=== PATIENT | female | born 1975 | race African-American/Black ===

== ENCOUNTER 2016-06-07 21:13 | Emergency (ER) | payer BC ==
[~2016-06-07] VITALS: Ht 167.6 cm; Wt 152.5 kg
[~2016-06-07 21:13] MED LIST: ATOR20TA59 PO; FAMO40TA7 PO; FLUT200B PO; LOSA50TA52 PO; PROM25TA7 PO
--- OUTSIDE RECORDS SUMMARY | 2016-06-07 21:17 | XMS REPORT | Continuity of Care Document ---
Author Author [facility] Organization [facility] Address Unknown Phone Unavailable Care Team Providers Care Automation Control Integrator Name Role Phone BEARYODIT JACKSON APRN Primary Care Physician Unavailable Insurance Providers Guarantor Zamzam Garcia Address [address] [address] Email DENIED 16 [facility] Policy Number [id number] Subscriber's Name Amada Garcia Relationship 01 Spouse Group Number [id number] Chief Complaint and Reason for Visit Chief Complaint Cough,Fever,Flu,URI Reason for Visit Vomiting and diarrhea Gastroenteritis Pharyngitis Problems Active Problems Medical Problem Onset Date Status Abdominal pain in female patient Unknown Acute Morbid obesity Unknown Past Problems Medical Problem Onset Date Gastritis Unknown Gastroenteritis Unknown Pharyngitis Unknown Sinusitis, acute maxillary Unknown Spastic intestine Unknown Strep throat Unknown Vomiting and diarrhea Unknown Medications Current Home Medications Medication Dose Units Route Directions Days Qty Instructions Start Date Atorvastatin Calcium 20 Mg Tablet 1 Tab Oral Bedtime 04/13/16 Famotidine 40 Mg Tablet 1 Tab Oral Daily 90 Tablet 04/13/16 Fluticasone Furoate (Arnuity Ellipta) 200 Mcg Blst.w.dev 1 Puff Oral Daily 04/13/16 Losartan Potassium 50 Mg Tablet 50 Mg Oral Daily 04/13/16 Promethazine Hcl 25 Mg Tablet 1 Tab Oral Every 6 Hr Prn for Nausea &/Or Vomiting 2 Days [address] Cheo [facility] [address] [place] [address] 06/06/16 Past Home Medications Medication Directions Ordered Status Ferrous Sulfate (Slow Fe) 160 Mg Tablet.sa, 160 Mg Oral Daily 11/18/10 Discontinued Ondansetron (Zofran Odt) 8 Mg Tab.rapdis, 8 Mg Oral/Sublingual Every 4 Hours Prn for Nausea &/Or Vomiting 06/06/16 Discontinued Vits W-Ca,Fe,Fa(<1MG) () 1 Tab Tablet, 1 Tab Oral Daily 18/01 Discontinued Social History Social History Problem Response Recorded Date/Time Onset Date Status Chewing Tobacco Status No 01/26/2012 6:06am Not Applicable Not Applicable Hx Substance Use No 04/13/2016 12:34am Not Applicable Not Applicable Hx Alcohol Use No 04/13/2016 12:34am Not Applicable Not Applicable Has the pt used tobacco in the last 12 months No 01/26/2012 6:06am Not Applicable Not Applicable Tobacco Usage none 05/12/2015 5:20pm Not Applicable Not Applicable Hospital Discharge Instructions No hospital discharge instructions. Plan of Care Discharge Date 06/06/16 10:56am Disposition 01 DISCHARGED HOME, SELF-CARE Condition at Discharge Stable Instructions/Education Provided Pharyngitis (ED) Fever in Adults (ED) Gastroenteritis (DC) Acute Nausea and Vomiting (DC) Forms Provided [facility] Work/School Permit Prescriptions See Medication Section Referrals YODIT SIFUENTES APRN Address: [address] [place] [id number] Additional Instructions/Education Use Phenergan as needed for nausea. Clear liquids with small sips frequently. Use Tylenol as needed for fevers and body aches. Rest at home until symptoms improve. If unable to keep fluids down in the next 12-24 hours, go to the emergency department as needed. Functional Status No functional status results. Allergies, Adverse Reactions, Alerts Allergen Type Severity Reaction Status Last Updated No Known Drug Allergies Allergy Unknown Active 06/06/16 Immunizations Query Response on File Recorded Date/Time Hx Influenza Vaccination No 11/27/10 2:16pm Hx Pneumococcal Vaccination No 11/27/10 2:16pm Hx Influenza Vaccination No 11/27/10 2:16pm DTaP Vaccine History UNKNOWN 06/06/16 10:09am Influenza Vaccine Hx DOESN'T RECEIVE 06/06/16 10:09am Vital Signs Acute Vital Signs Vital Response Date/Time Temperature (Fahrenheit) 101.7 deg F (96.8 - 99.1) 06/06/2016 9:58am Temperature (Calculated Celsius) 38.49255 degrees C (36.0 - 37.3) 06/06/2016 9:58am Pulse Rate (adult) 117 bpm (60 - 100) 06/06/2016 9:58am Respiratory Rate 24 breaths/min (10 - 20) 06/06/2016 9:58am O2 Sat by Pulse Oximetry 97 % (90 - 100) 06/06/2016 9:58am Blood Pressure 138/93 mm Hg 06/06/2016 9:58am Height (Feet) 5 feet 04/13/2016 12:24am Height (Inches) 65.50 inches 06/06/2016 9:58am Weight (Kilograms) 155.700 kg 06/06/2016 9:58am Body Mass Index (BMI) 56.0 06/06/2016 9:58am Results Laboratory Results Test Name Result Units Flags Reference Collection Date/Time Result Date/ Time Comments White Blood Count 10.6 T/MM3 4.5-11.0 04/13/2016 12:49am 04/13/2016 12: 54am Red Blood Count 5.24 M/MM3 H 4.00-5.20 04/13/2016 12:49am 04/13/2016 12: 54am Hemoglobin 12.9 GM/DL 12-16 04/13/2016 12:49am 04/13/2016 12:54am Hematocrit 40.3 % 36-46 04/13/2016 12:49am 04/13/2016 12:54am Mean Corpuscular Volume 76.9 UM3 L 80-100 04/13/2016 12:49am 04/13/2016 12:54am Mean Corpuscular Hemoglobin 24.6 UUG L 26-34 04/13/2016 12:49am 2016 12:54am Mean Corpuscular Hemoglobin Concent 32.0 GM/DL 31-37 04/13/2016 12:49am 04/13/2016 12:54am RDW Standard Deviation 40.7 FL 36.9-50.2 04/13/2016 12:49am 04/13/2016 12:54am Platelet Count 331 T/MM3 130-400 04/13/2016 12:49am 04/13/2016 12:54am Mean Platelet Volume 9.3 UM3 L 9.4-12.4 04/13/2016 12:49am 04/13/2016 12 :54am Neutrophils (%) (Auto) 77.5 % H 33-66 04/13/2016 12:49am 04/13/2016 12: 54am Lymphocytes (%) (Auto) 16.7 % L 23-45 04/13/2016 12:49am 04/13/2016 12: 54am Monocytes (%) (Auto) 5.0 % 0-9.0 04/13/2016 12:49am 04/13/2016 12:54am Eosinophils (%) (Auto) 0.1 % 0-4 04/13/2016 12:49am 04/13/2016 12:54am Basophils (%) (Auto) 0.3 % 0-2 04/13/2016 12:49am 04/13/2016 12:54am Immature Granulocyte % (Auto) 0.4 % 0.0-0.5 04/13/2016 12:49am 2016 12:54am Absolute Neutrophils (auto) 8.2 T/MM3 H 1.8-7.7 04/13/2016 12:49am 04/13 12:54am Absolute Lymphocytes (auto) 1.8 T/MM3 1-4.8 04/13/2016 12:49am 2016 12:54am Absolute Monocytes (auto) 0.5 T/MM3 0-0.8 04/13/2016 12:49am 2016 12:54am Absolute Eosinophils (auto) 0.0 T/MM3 0-0.5 04/13/2016 12:49am 2016 12:54am Absolute Basophils (auto) 0.0 T/MM3 0-0.2 04/13/2016 12:49am 2016 12:54am Absolute Immature Granulocyte (auto 0.04 T/MM3 H 0.00-0.03 04/13/2016 12: 49am 04/13/2016 12:54am Icterus Index < 2 0-7 04/13/2016 12:49am 04/13/2016 1:04am Chemistry Specimen Hemolysis < 15 0-25 04/13/2016 12:49am 04/13/2016 1:04am 0-25: Specimen Exhibited No Hemolysis. Turbidity < 20 0-20 04/13/2016 12:49am 04/13/2016 1:04am Sodium Level 141 MEQ/L 134-144 04/13/2016 12:49am 04/13/2016 1:04am Potassium Level 3.9 MEQ/L 3.6-5 04/13/2016 12:49am 04/13/2016 1:04am Chloride Level 104 MEQ/L 98-107 04/13/2016 12:49am 04/13/2016 1:04am Carbon Dioxide Level 24 MEQ/L 22-30 04/13/2016 12:49am 04/13/2016 1: 04am Anion Gap 13 MEQ/L 5-15 04/13/2016 12:49am 04/13/2016 1:04am Blood Urea Nitrogen 11.0 MG/DL 7-04/13/2016 12:49am 04/13/2016 1: 04am Creatinine 0.8 MG/DL 0.7-1.2 04/13/2016 12:49am 04/13/2016 1:04am BUN/Creatinine Ratio 14 RATIO 6-26 04/13/2016 12:49am 04/13/2016 1: 04am Glomerular Filtration Rate Calc 79 04/13/2016 12:49am 04/13/2016 1: 04am Glucose Level 177 MG/DL H 65-110 04/13/2016 12:49am 04/13/2016 1:04am Calculated Osmolality 274 MOSM/KG 261-280 04/13/2016 12:49am 2016 1:04am Calcium Level 9.1 MG/DL 8.4-10.2 04/13/2016 12:49am 04/13/2016 1:04am Total Bilirubin 0.60 MG/DL 0.20-1.30 04/13/2016 12:49am 04/13/2016 1: 04am Alkaline Phosphatase 70 U/L 38-126 04/13/2016 12:49am 04/13/2016 1: 04am Total Protein 7.4 G/DL 6.3-8.2 04/13/2016 12:49am 04/13/2016 1:04am Albumin 4.2 G/DL 3.5-5.0 04/13/2016 12:49am 04/13/2016 1:04am Globulin 3.2 G/DL 2.4-3.6 04/13/2016 12:49am 04/13/2016 1:04am Albumin/Globulin Ratio 1.3 RATIO 1.1-2.2 04/13/2016 12:49am 04/13/2016 1:04am Aspartate Amino Transf (AST/SGOT) 29 U/L 14-36 04/13/2016 12:49am 04/13 1:04am Alanine Aminotransferase (ALT/SGPT) 40 U/L 9-52 04/13/2016 12:49am 1:04am Troponin I < 0.012 ng/ml 0-0.12 04/13/2016 12:49am 04/13/2016 1:16am Troponin values with a difference of 55% increase from orginal troponin value represent a true biological DELTA value. (%increase Calc=Orginal Troponin value, divided by subsequent Troponin value, multiplied by 100) Lipase 92 U/L 23-300 04/13/2016 12:49am 04/13/2016 1:04am Influenza Type A Antigen NEGATIVE NEGATIVE 06/06/2016 10:16am 2016 10:39am Negative for Flu A protein antigen. Assay sensitivity is 90%. Influenza Type B Antigen NEGATIVE NEGATIVE 06/06/2016 10:16am 2016 10:39am Negative for Flu B protein antigen. Assay sensitivity is 90%. Group A Streptococcus Screen NEGATIVE NEGATIVE 06/06/2016 10:38am 10:39am Procedures Procedure Status Date Provider(s) Chest x-ray 2vw frontal&latl Completed 04/13/16 Comprehen metabolic panel Completed 04/13/16 Assay of lipase Completed 04/13/16 Assay of troponin quant Completed 04/13/16 Complete cbc w/auto diff wbc Completed 04/13/16 Electrocardiogram tracing Completed 04/13/16 Hydrate iv infusion add-on Completed 04/13/16 Ther/proph/diag inj iv push Completed 04/13/16 Tx/pro/dx inj new drug addon Completed 04/13/16 Tx/pro/dx inj new drug addon Completed 04/13/16 Emergency dept visit Completed 04/13/16 [id number]"INJECTION, PROCHLORPERAZINE, UP TO 10 MG" Completed 02/20/17 [id number]"INJECTION, KETOROLAC TROMETHAMINE, PER 15 MG" Completed 04/13/16"INJECTION, FENTANYL CITRATE, 0.1 MG" Completed 04/13/16"INFUSION, NORMAL SALINE SOLUTION , 1000 CC" Completed 04/13/16 Encounters Encounter Location Arrival/Admit Date Discharge/Depart Date Attending Provider Departed Emergency Room [facility] 06/06/16 9:54am 06/06/16 10: 56am TAHIR SMITH APRN Departed Emergency Room [facility] 04/13/16 12:22am 04/13/16 2: 08am AJAY LAM MD Recent Diagnosis
[2016-06-07 21:18] VITALS: Ht 167.6 cm; Wt 152.5 kg
[2016-06-07] MEDS ORDERED: IBUPROFEN 800 MG TABLET PO ONE (21:45)
[2016-06-07 21:47] LABS: BASOPHILS % (AUTO) 0.2 % (0-2); EOSINOPHILS % (AUTO) 0.3 % (0-4); HCT - HEMATOCRIT 41.3 % (36-46); HGB - HEMOGLOBIN 13.1 GM/DL (12-16); IMMATURE GRANULOCYTE # (AUTO) 0.03 T/MM3 (0.00-0.03); IMMATURE GRANULOCYTE % (AUTO) 0.2 % (0.0-0.5); LYMPHOCYTES # (AUTO) 2.3 T/MM3 (1-4.8); LYMPHOCYTES % (AUTO) 18.8 % (23-45); MEAN CORPUSCULAR HGB 24.5 UUG (26-34); MEAN CORPUSCULAR HGB CONC(MCHC 31.7 GM/DL (31-37); MEAN CORPUSCULAR VOLUME 77.2 UM3 (80-100); MEAN PLATELET VOLUME 9.2 UM3 (9.4-12.4); MONOCYTES # (AUTO) 0.8 T/MM3 (0-0.8); MONOCYTES % (AUTO) 6.8 % (0-9.0); NEUTROPHILS #(AUTO)-ABSOLUTE 8.9 T/MM3 (1.8-7.7); NEUTROPHILS % (AUTO) 73.7 % (33-66); RED BLOOD COUNT 5.35 M/MM3 (4.00-5.20); WBC - WHITE BLOOD COUNT 12.1 T/MM3 (4.5-11.0)
--- NOTE | 2016-06-07 21:48 | NUR ---
XRAY PATIENT TO RADIOLOGY PER CART, STABLE. PATIENT ABLE TO STAND FOR CXR WITHOUT DIFFICULTY.
[2016-06-07 21:54] LABS: ANION GAP 13 MEQ/L (5-15); BUN/CREATININE RATIO 12 RATIO (6-26); CALCIUM 9.2 MG/DL (8.4-10.2); CHLORIDE 102 MEQ/L (98-107); CO2 - CARBON DIOXIDE 26 MEQ/L (22-30); CREATININE 0.9 MG/DL (0.7-1.2); GLOMERULAR FILTRATION RATE 69; GLUCOSE 167 MG/DL (65-110); POTASSIUM 3.7 MEQ/L (3.6-5); SODIUM 141 MEQ/L (134-144)
--- NOTE | 2016-06-07 21:54 | NUR ---
RETURN PATIENT BACK FROM RADIOLOGY PER CART, STABLE.
--- NOTE | 2016-06-07 21:55 | NUR ---
UPDATE PATIENT LYING IN BED, REPORTS NO SIGNIFICANT CHANGES AT THIS TIME.
[2016-06-07] MEDS ORDERED: ONDANSETRON ODT 4 MG TAB PO ONE (22:00)
--- NOTE | 2016-06-07 23:00 | NUR ---
UPDATE PATIENT LYING IN BED, FAMILY AT BEDSIDE. PATIENT CONTINUES TO REPORT BODY ACHES AND HEADACHE, BUT REPORTS NAUSEA HAS IMPROVED AT THIS TIME.
[2016-06-07 23:12] LABS: BLOOD, URINE NEGATIVE (NEGATIVE); COLOR,URINE YELLOW (YELLOW); LEUKOCYTE ESTERASE ,URINE NEGATIVE (NEGATIVE); NITRITE,URINE NEGATIVE (NEGATIVE)
--- NOTE | 2016-06-07 23:31 | ERPDOC ---
Departure Disposition Decision Date: Jun 07, 2016 Disposition Decision Time: 23:31 () Disposition: 01 DISCHARGED HOME, SELF-CARE Impression Impression () Impression: Primary Impression: URI (upper respiratory infection) URI type: unspecified viral URI Qualified Codes: B97.89 - Other viral agents as the cause of diseases classified elsewhere; J06.9 - Acute upper respiratory infection, unspecified Severity: Mild () Condition: Stable Seen By: Physician only () Referrals: YODIT SIFUENTES APRN (Family) 3 Days Patient Instructions: Upper Respiratory Infection (ED) Problems/Meds/Labs Reviewed?: Yes Medications reviewed and manag: Yes () Additional Instructions: You have a cold. Take tylenol and motrin as needed for pain and fever. Drink plenty of fluids. Follow up with your doctor in the next week. Follow up care ordered?: Yes Mental Status: Alert, Oriented () HPI - Fever General Chief Complaint: Fever Stated Complaint: HIGH FEVER Time Seen by Provider: 21:20 () Time Seen by Provider: 21:20 Source: patient Exam Limitations: no limitations (BHUPENDRA MORENO APRN) HPI - Fever Initial Comments She presents to ER today for evaluation of fever. She states that onset of fever was yesterday. Did go to immediate care and had a rapid strep test and an influenza swab both that were negative. She was sent home with instructions for viral infection. Fever has continued today and she is having body aches and has vomited a few times as well. Denies any diarrhea or abdominal pain. Occurred At: home Onset: Gradual Duration: other (Over the last 2 days) Fever Quality: greater than 102 F Associated Symptoms: dizziness, headache, lightheadedness, nausea/vomiting, trouble walking (due to weakness), DENIES: abdominal pain, chest pain, confusion , muscle spasms, neck pain, ringing in ears, seizures, shortness of breath, slurred speech, vision changes Hx of Similar Symptoms: No (BHUPENDRA MORENO APRN) Allergies: Coded Allergies: No Known Drug Allergies (Verified Allergy, Unknown, 06/07/16) Past History Past Medical History Metabolic: hypertension GI: GERD () Pt denies signifigant PMH (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,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) Surgical History General: tonsils Reproductive/: hysterectomy () Reproductive/: hysterectomy, tubal ligation (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,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) Family History Family PMH: FOUND: diabetes () Family History: Negative (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,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) Vaccines Hx Influenza Vaccination: No Hx Pneumococcal Vaccination: No () Social History # of Packs/Tins per Day: 1.0 Quit Date: Feb 23, 1996 Substance Use Type: does not use Alcohol Intake: none () Smoking Status: Never smoker Substance Use Type: does not use Alcohol Intake: none (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,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) Review of Systems Constitutional Constitutional: chills, dizziness, fatigue, fever, weakness (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,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 ) ENMT Ears: DENIES: drainage Sinuses: DENIES: congestion, rhinorrhea Mouth/Throat: sore throat, DENIES: painful swallowing, scratchy throat (NOLD, 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) Cardiovascular Cardiac: DENIES: chest pain, dyspnea on exertion, orthopnea Rhythm/Rate: DENIES: irregular beat, palpitations (NOLD,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) Pulmonary Respiratory: DENIES: cough, dyspnea, sputum, tachypnea (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,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) GI Upper Abdomen: nausea, vomiting, DENIES: pain Lower Abdomen: DENIES: constipation, diarrhea, pain (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,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) Integumentary Skin: DENIES: rash (NOLD,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) Neurological General: DENIES: headache, numbness, tingling, weakness (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,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) Physical Exam General General Nourishment: well nourished, well developed, appears stated age, adult , obese, acute distress (Is moaning on the cart but does not have toxic appearance) General Body Habitus: well groomed (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,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) Vitals and Pain Weight: Kilograms: 152.500 Height (feet): 5 Height (inches): 6.00 Triage Pain Scale: (MAY,PHILLY M DO) RN VS reviewed by Provider: Yes (BHUPENDRA MORENO APRN) Normal Exams: Neck: Full range of motion, without adenopathy, JVD, bruits or thyromegaly Chest/Resp: Clear all feliciano, with good airflow, and symmetry bilaterally CV: Regular rate and rhythm, without murmur or gallop, Pulses 2+ all extremities, capillary refill, <2 seconds all ext., no pedal edema noted Abdomen: Bowel sounds positive, soft, non-tender, non-distended, no hepatosplenomegaly, masses or bruits noted Lymphatic: No lymphadenopathy, or lymphedema noted Integumentary: No rashes, hives, or bruising noted Neurologic: Patient is alert, and oriented Psychiatric: Patient exhibits, appropriate attention, emotion and affect (BHUPENDRA MORENO APRN) ENMT (brief) ENMT Brief: FOUND: TM clear, TM good light reflex, ear canals clear, mucosa moist, normal dentition, normal tonsils, NOT FOUND: lesions, nasal erythema, nasal exudate, nasal swelling, petechiae, pharnyx erythema, tonsillar deviation (BHUPENDRA MORENO APRN) Differential Diagnoses Considering: Influenza, Otitis Media, Pharyngitis, Pneumonia, Septic Shock, URI , Viral Syndrome (BHUPENDRA MORENO APRN) Progress Results/Orders Orders Procedure Category Date Status Time Ua, Dip Wreflex LAB 06/07/16 Complete Microsc & Rn Corrections 21:30 Cbc W/Auto LAB 06/07/16 Complete Diff-Reflex Manual Bmp - Basic Metabolic LAB 06/07/16 Complete Panel Chest, Pa & Lateral RAD 06/07/16 Resulted Ibuprofen (Motrin) PHA 06/07/16 Complete 21:45 Ondansetron Odt PHA 06/07/16 Complete (Zofran Odt) 22:00 Influenza A/B By Pcr LAB 06/07/16 Complete 21:30 (BHUPENDRA MORENO APRN) Lab Results Laboratory Tests Test 06/07/16 21:41 06/07/16 22:00 06/07/16 23:03 White Blood Count 12.1T/MM3 Red Blood Count 5.35M/MM3 Hemoglobin 13.1GM/DL Hematocrit 41.3% Mean Corpuscular Volume 77.2UM3 Mean Corpuscular Hemoglobin 24.5UUG Mean Corpuscular Hemoglobin Concent 31.7GM/DL RDW Standard Deviation 39.6FL Platelet Count 286T/MM3 Mean Platelet Volume 9.2UM3 Immature Granulocyte % (Auto) 0.2% Neutrophils (%) (Auto) 73.7% Lymphocytes (%) (Auto) 18.8% Monocytes (%) (Auto) 6.8% Eosinophils (%) (Auto) 0.3% Basophils (%) (Auto) 0.2% Absolute Immature Granulocyte (auto 0.03T/MM3 Absolute Neutrophils (auto) 8.9T/MM3 Absolute Lymphocytes (auto) 2.3T/MM3 Absolute Monocytes (auto) 0.8T/MM3 Absolute Eosinophils (auto) 0.0T/MM3 Absolute Basophils (auto) 0.0T/MM3 Turbidity < 20 Sodium Level 141MEQ/L Potassium Level 3.7MEQ/L Chloride Level 102MEQ/L Carbon Dioxide Level 26MEQ/L Anion Gap 13MEQ/L Blood Urea Nitrogen 11.0MG/DL Creatinine 0.9MG/DL Glomerular Filtration Rate Calc 69 BUN/Creatinine Ratio 12RATIO Glucose Level 167MG/DL Calculated Osmolality 274MOSM/KG Calcium Level 9.2MG/DL Icterus Index < 2 Chemistry Specimen Hemolysis < 15 Influenza Virus Type A (PCR) Negative Influenza Virus Type B (PCR) Negative Urine Collection Type Cleancatch-midstream Urine Color Yellow Urine Turbidity Clear Urine pH 6.5 Urine Specific Amorita 1.010 Urine Protein Negative Urine Glucose (UA) Negative Urine Ketones Negative Urine Blood Negative Urine Nitrite Negative Urine Bilirubin Negative Urine Urobilinogen 2.0EU/DL Urine Leukocyte Esterase Negative Urinalysis Comment Microscopic not ind. (BHUPENDRA MORENO APRN) Medications Current ED Medications Ibuprofen (Motrin) 800 mg O ONCE PO Last administered on 06/07/16 21:43; Start 06/07/16 at 21:45; Stop 06/07/16 at 21:46; Status DC Ondansetron HCl (Zofran Odt) 4 mg O ONCE PO Last administered on 06/07/16 21: 54; Start 06/07/16 at 22:00; Stop 06/07/16 at 22:01; Status DC (BHUPENDRA MORENO APRN) Progress Progress Assumed care of pt from Tracy Moreno APRN at 2300. 41yo woman with PE evidence of viral URI. Elevated WBC without evidence of bacterial infx or sepsis. Flu swab again neg. No pulm or urinary source by lab/ rad. Pt most likely has URI, as initially dx'ed by convenient care. Discussed dx , prognosis, and tx with pt and spouse, who voiced understanding. F/u with PCM. (PHILLY LEYVA DO) Xray Xray : Xray: CXR PA/Lat Interpretation: Normal, Interpreted by Me (PHILLY LEYAV DO) PHILLY LEYVA DO Jun 07, 2016 23:31 BHUPENDRA MORENO APRN Jun 13, 2016 00:02
[2016-06-07 23:38] VITALS: BP 145/84; PULSE 98; RESP 20; TEMP 99.8; O2SAT 94
--- NOTE | 2016-06-07 23:38 | NUR ---
DEPART PATIENT SEEN LEAVING ED PRIOR TO DC INSTRUCTIONS GIVEN. PATIENT STOPPED IN HALLWAY AND INSTRUCTIONS GIVEN.
--- NOTE | 2016-06-08 06:55 | DI ---
LOCATION OF DICTATION: [facility] EXAM: CHEST, PA LATERAL HISTORY: ITS.REASON: fever COMPARISON: April 13, 2016 FINDINGS: The heart size is normal. The mediastinal configuration is unremarkable. There are no consolidating opacities or pleural effusions. There is no evidence for a pneumothorax. The osseous structures are within normal limits. IMPRESSION: No acute cardiopulmonary abnormality is identified. .
== END 2016-06-07 23:38 | disposition home or self-care (01) ==
LOC: ED 21:13
DX: J06.9 Acute upper respiratory infection, unspecified (principal); B97.89 Other viral agents as the cause of diseases classified elsewhere
CPT/HCPCS: 36415; 80048; 81003; 85025; 87502